=== PATIENT | female | born 1965 | race Caucasian/White ===

== ENCOUNTER → 2017-09-20 | Outpatient (CLI) | payer OTHER ==
[~2017-09-20] MED LIST: ALLEGRA ALLERG180 MG PO; ARICEPT 5 MG TAB5 MG PO; AUGMENTIN 875-1 EACH PO; CLARITIN10 M2 PO; CYMBALTA30 MG PO; FLURBIPROFEN50 MG PO; LIPITOR10 MG PO; LISINOPRIL10 MG PO
--- NOTE | ~2017-09-20 | EKG ---
[address] [address] ELECTROCARDIOGRAM REPORT Name: SANJU WARREN Room #: REG CLI [facility]#: [id number] Admission: 09/20/17 Attend Phys: Noel Shelton MD Discharge: Date of : 63 Report #: [id number] THIS REPORT FOR: //name// [facility] Test Date: 2017-09-20 Test Time: 06:27:12 Pat Name: SANJU WARREN Department: Room: Gender: F Emergency Medicine Nurse Practitioner: JENN : 1965 Requested By: Noel Shelton Order Number: [id number] MD: Gentry Montes Measurements Intervals [place] Rate: 93 P: 48 WV: 125 QRS: 14 QRSD: 92 T: 39 QT: 357 QTc: 445 Interpretive Statements Sinus rhythm Baseline wander in lead(s) I,III,aVL No previous ECG available for comparison Electronically Signed On 09-20-2017 8:01:37 CDT by Gentry Montes [email or web address] <ELECTRONICALLY SIGNED> By: Gentry Montes MD 09/20/17 08 D: [id number] Gentry Montes MD /ELIZABETH
== END | disposition home or self-care (01) ==
LOC: LITH 05:58
DX: N20.1 Calculus of ureter (principal); I10 Essential (primary) hypertension; G47.33 Obstructive sleep apnea (adult) (pediatric); F32.9 Major depressive disorder, single episode, unspecified; Z90.710 Acquired absence of both cervix and uterus; Z90.49 Acquired absence of other specified parts of digestive tract; Z79.899 Other long term (current) drug therapy; Z98.890 Other specified postprocedural states; Z96.652 Presence of left artificial knee joint